=== PATIENT | male | born 1950 | race Caucasian/White ===

== ENCOUNTER 2017-03-01 05:19 | Observation (INO) | payer MEDICARE ==
[~2017-03-01 05:19] MED LIST: CLON0.1T PO; LANTUS2P SQ; LISI-515 PO
[2017-03-01] MEDS ORDERED: ONDANSETRON HCL 4 MG/2 ML VIAL IVP PRN (05:45)
[2017-03-01] MEDS ORDERED: NALOXONE HCL 0.4 MG/ML AMP IV PRN (05:45)
[2017-03-01] MEDS ORDERED: GLUCAGON 1 MG/ML VIAL OTHER PRN (05:45)
[2017-03-01] MEDS ORDERED: DEXTROSE 50% IN WATER 50 ML VIAL(D50) IV PRN (05:45)
[2017-03-01] MEDS ORDERED: SODIUM CHLORIDE 0.9% FLUSH 10 ML FLUSH IV FLUSH PRN (05:45)
[2017-03-01] MEDS ORDERED: cloNIDine HCL 0.1 MG TAB PO PRN (05:45)
[2017-03-01] MEDS ORDERED: ACETAMINOPHEN 325 MG TAB PO PRN (05:45)
[2017-03-01 09:00] VITALS: BP 192/104; PULSE 75; RESP 20; TEMP 96.5; O2SAT 98
[2017-03-01] MEDS: SODIUM CHLORIDE 0.9% FLUSH 10 ML FLUSH IV FLUSH SCH ×2 (09:44→20:55)
[2017-03-01] MEDS: INSULIN ASPART SUPPLEMENTAL SCALE SQ SCH ×3 (11:00→20:53)
[2017-03-01 12:00] VITALS: BP 156/93; PULSE 74; RESP 20; TEMP 95.9; O2SAT 97
--- NOTE | 2017-03-01 13:14 | HHI.HP ---
HPI Service [facility] Primary Care Physician Unknown Admission Diagnosis Diagnoses: (1) Hypertensive urgency (2) Intractable nausea and vomiting Chief Complaint: Nausea and vomiting along with my pressure that went up Travel History International Travel<30 Days: No Contact w/Intl Traveler <30 Da: No Traveled to Known Affected Are: No History of Present Illness 63 year-old male with a history of diabetes type 2, hepatitis C went to the ED yesterday for evaluation of dizziness followed by nausea and vomiting times multiple episodes as well as worsening blood pressure. Patient states he has been treated for hepatitis C and adjust completed a three-month course of medication back in December, and since then he has been feeling well. He presented to the ED, his BP was 240/140, however currently his blood pressure has improved since admission. He denies any chest pain or shortness of breath. Review of Systems Except as stated in HPI: all other systems reviewed are Neg Past Family Social History Past Medical History High Cholesterol: Yes Diabetes: Yes Hypertension: Yes Medical other: Yes (TOOK MEDICATIONS TO CURE HEP C) Past Surgical History COLOSTOMY THEN REVERSAL, HERNIA REPAIR Reported Medications Lantus Inj (Insulin Glargine) 1,000 Unit/10 Ml Vial 40 Units SQ DAILY Clonidine (Clonidine HCl) 0.1 Mg Tab 0.1 Mg PO BID Lisinopril 20 Mg Tab 20 Mg PO DAILY Allergies: Coded Allergies: No Known Allergies (Unverified , 02/28/17) Family History Father had hypertension however from complication of heart disease Mother from complication of diabetes Social History Alcohol Use: No Tobacco Use: No Substance Use: Marijuana Physical Exam Vital Signs Vital Signs Date Time Temp Pulse Resp B/P Pulse Ox O2 Delivery O2 Flow Rate FiO2 03/01/17 12:00 95.9 74 20 156/93 97 03/01/17 09:00 96.5 75 20 192/104 98 Physical Exam GENERAL: This is a well-nourished, well-developed patient, in no apparent distress. SKIN: No rashes, ecchymoses or lesions. Cool and dry. HEAD: Atraumatic. Normocephalic. No temporal or scalp tenderness. EYES: Pupils equal round and reactive. Extraocular motions intact. No scleral icterus. No injection or drainage. ENT: Nose without bleeding, purulent drainage or septal hematoma. Throat without erythema, tonsillar hypertrophy or exudate. Uvula midline. Airway patent. NECK: Trachea midline. No JVD or lymphadenopathy. Supple, nontender, no meningeal signs. CARDIOVASCULAR: Regular rate and rhythm without murmurs, gallops, or rubs. RESPIRATORY: Clear to auscultation. Breath sounds equal bilaterally. No wheezes , rales, or rhonchi. GASTROINTESTINAL: Abdomen soft, non-tender, nondistended. No hepato-splenomegaly , or palpable masses. No guarding. MUSCULOSKELETAL: Extremities without clubbing, cyanosis, or edema. No joint tenderness, effusion, or edema noted. No calf tenderness. Negative Homans sign bilaterally. NEUROLOGICAL: Awake and alert. Cranial nerves II through XII intact. Motor and sensory grossly within normal limits. Five out of 5 muscle strength in all muscle groups. Normal speech. 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
[2017-03-01] MEDS ORDERED: ONDANSETRON HCL 4 MG/2 ML VIAL IV PRN (13:15)
[2017-03-01] MEDS ORDERED: DOCUSATE SODIUM 50 MG/SENNA 8.6 MG TAB PO PRN (13:15)
[2017-03-01] MEDS ORDERED: TEMAZEPAM 15 MG CAP PO PRN (13:15)
[2017-03-01] MEDS ORDERED: TAMS0.4C4 PO (14:29)
[2017-03-01] MEDS ORDERED: ENAL20TA PO (14:30)
[2017-03-01] MEDS ORDERED: VITA400T14 PO (14:32)
[2017-03-01] MEDS ORDERED: SIMV10TA PO (14:33)
[2017-03-01 16:00] VITALS: BP 161/94; PULSE 69; RESP 20; TEMP 98.5; O2SAT 95
[2017-03-01 20:00] VITALS: BP 167/89; PULSE 69; PULSE 77; RESP 18; TEMP 98.8; O2SAT 97
[2017-03-01] MEDS: cloNIDine HCL 0.1 MG TAB PO SCH (20:55)
[2017-03-02 00:14] VITALS: BP 150/87; PULSE 68; RESP 16; TEMP 98.6; O2SAT 98
[2017-03-02 04:40] VITALS: BP 160/89; PULSE 72; RESP 18; TEMP 98; O2SAT 98
[2017-03-02] MEDS: INSULIN ASPART SUPPLEMENTAL SCALE SQ SCH (06:16)
[2017-03-02 07:20] LABS: AUTOMATED NEUTROPHIL # 3.4 TH/MM3 (1.8-7.7); BASOPHIL % 0.4 % (0.0-2.0); EOSINOPHIL # 0.1 TH/MM3 (0-0.4); EOSINOPHIL % 1.2 % (0.0-4.0); HEMATOCRIT 37.4 % (39.0-51.0); HEMO FLAGS DIFF FINAL; LYMPH % 23.6 % (9.0-44.0); LYMPHOCYTE # 1.2 TH/MM3 (1.0-4.8); MEAN CELL VOLUME 92.7 FL (80.0-100.0); MEAN CORPUSCULAR HEMOGLOBIN 31.6 PG (27.0-34.0); MEAN CORPUSCULAR HGB CONC 34.1 % (32.0-36.0); MONO % 8.5 % (0.0-8.0); NEUT % 66.3 % (16.0-70.0); PLATELET COUNT 132 TH/MM3 (150-450); RED BLOOD COUNT 4.03 MIL/MM3 (4.50-5.90); RED CELL DISTRIBUTION WIDTH 12.7 % (11.6-17.2); WHITE BLOOD COUNT 5.1 TH/MM3 (4.0-11.0)
[2017-03-02 07:31] LABS: POTASSIUM 4.4 MEQ/L (3.5-5.1)
[2017-03-02 07:36] LABS: BICARBONATE 27.8 MEQ/L (21.0-32.0)
[2017-03-02 08:00] VITALS: BP 185/96; PULSE 68; RESP 17; TEMP 97.2; O2SAT 95
[2017-03-02] MEDS: cloNIDine HCL 0.1 MG TAB PO SCH (08:00)
[2017-03-02] MEDS: SODIUM CHLORIDE 0.9% FLUSH 10 ML FLUSH IV FLUSH SCH (08:01)
[2017-03-02] MEDS ORDERED: INSULIN DETEMIR 100 UNITS/ML VIAL SQ SCH (09:00)
[2017-03-02] MEDS ORDERED: LISINOPRIL 20 MG TAB PO SCH (09:00)
[2017-03-02] MEDS ORDERED: ENAL20TA PO (10:35)
[2017-03-02] MEDS ORDERED: CLON0.1T PO (10:35)
--- NOTE | 2017-03-02 10:39 | HHI.PR ---
Subjective Remarks Patient reports is feeling great. Denies shortness of breath or chest pain. No headaches or lightheadedness. He was under the impression was supposed to take clonidine as needed only Objective Vitals Vital Signs Date Time Temp Pulse Resp B/P Pulse Ox O2 Delivery O2 Flow Rate FiO2 03/02/17 08:00 97.2 68 17 185/96 95 03/02/17 04:40 98.0 72 18 160/89 98 03/02/17 00:14 98.6 68 16 150/87 98 03/01/17 20:00 98.8 77 18 167/89 97 03/01/17 20:00 69 03/01/17 16:00 98.5 69 20 161/94 95 03/01/17 12:00 95.9 74 20 156/93 97 I/O 03/01/17 03/01/17 03/01/17 03/02/17 03/02/17 03/02/17 07:00 15:00 23:00 07:00 15:00 23:00 Intake Total 720 ml Balance 720 ml Intake Oral 720 ml # Voids 3 Result Diagram: 03/02/17 0652 03/02/17 0652 Objective Remarks GENERAL: This is a well-nourished, well-developed patient, in no apparent distress. CARDIOVASCULAR: Normal rate and regular rhythm without murmurs, gallops, or rubs. RESPIRATORY: Good respiratory efforts. Breath sounds equal and clear to auscultation bilaterally. GASTROINTESTINAL: Abdomen soft, non-tender, non-distended. Normal active bowel sounds MUSCULOSKELETAL: Extremities without cyanosis, or edema. NEURO: Alert & Oriented x4 to person, place, time, situation. Moves all ext x4 PSYCH: Appropriate mood and affect. A/P Problem List: (1) Hypertensive urgency ICD Code: I16.0 Status: Acute (2) Intractable nausea and vomiting ICD Code: R11.2 Status: Acute Assessment and Plan 66-year-old man admitted with hypertensive urgency. The patient's blood pressure has been uncontrolled lately. He was started on clonidine but he was not taking it appropriately. Patient extensively reeducated on how to take his medications. His blood pressure improved during the hospitalization. He is advised to follow-up outpatient with his PCP for further titration as indicated. He is advised to check his blood pressure 2 to 3 times daily and keep a log for his PCP. Medications adjusted to clonidine 0.1 mg twice daily and lisinopril 20 mg twice daily. Intractable nausea and vomiting: Patient treated with antiemetics. Blood pressure improved. 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
--- NOTE | 2017-03-02 10:43 | HHI.DCPOC ---
Discharge Care Plan Diagnosis: (1) Hypertensive urgency (2) Intractable nausea and vomiting Goals to Promote Your Health * To prevent worsening of your condition and complications * To maintain your health at the optimal level Directions to Meet Your Goals Take your medications as prescribed Follow your dietary instruction Follow activity as directed Keep your appointments as scheduled Take your immunizations and boosters as scheduled If your symptoms worsen call your PCP, if no PCP go to Urgent Care Center or Emergency Room Smoking is Dangerous to Your Health. Avoid second hand smoke Call the 24-hour hour crisis hotline for domestic abuse at Jose Sumner MD Mar 02, 2017 10:43
== END 2017-03-02 12:18 | disposition home or self-care (01) ==
LOC: PHEDDLT 07:28 → PH3B 07:38 → UNDOADMOB 07:38 → UNDODISOB 03-02 12:18
PROVIDERS: ADMIT Family Medicine; ATTEND Family Medicine
DX: I16.0 Hypertensive urgency (principal); R11.2 Nausea with vomiting, unspecified; E11.9 Type 2 diabetes mellitus without complications; B19.20 Unspecified viral hepatitis C without hepatic coma; R42 Dizziness and giddiness; I10 Essential (primary) hypertension; E78.00 Pure hypercholesterolemia, unspecified; Z79.4 Long term (current) use of insulin; Z79.899 Other long term (current) drug therapy
CPT/HCPCS: 71010; 80048; 80053; 80307; 81001; 82550; 82948; 83735; 84100; 84484; 85025; 85610; 85730; 87086; 93005; 96361; 96372; 96374; 99285; G0378; J1815; J2405; J7030; 99281